=== PATIENT | female | born 1975 | race Caucasian/White ===

== ENCOUNTER → 2017-01-08 | Outpatient (CLI) | payer BC ==
[~2017-01-08] VITALS: Ht 152.4 cm; Wt 59.0 kg
[~2017-01-08] MED LIST: NAPROXEN 250 M250 MG PO
== END ==
LOC: OPSV 11:00
DX: D50.0 Iron deficiency anemia secondary to blood loss (chronic) (principal); Z98.84 Bariatric surgery status
CPT/HCPCS: 96365; J1756; J7030

== ENCOUNTER → 2020-10-26 | Outpatient (CLI) | payer BC ==
[~2020-10-26] MED LIST changes: +ALTAVERA-28 TA1 EACH PO; +BUSPIRONE HCL5 MG PO; +FERROUS SULFAT325 M2 PO; +KENALOG OINT 0.15 GM TOP; +LIPITOR TAB 1010 MG PO; +PAIN RELIEVER325 MG PO; +PANTOPRAZOLE SO40 MG PO; +PLAQUENIL 200200 MG PO; +SINGULAIR10 MG PO; +XYZAL5 MG PO
[2020-10-26 13:16] LABS: HEMOGLOBIN 12.4 gm/dl (12.3-15.3); RED BLOOD COUNT 4.95 M/UL (4.00-5.10); WHITE BLOOD COUNT 4.7 K/UL (4.5-11.0)
[2020-10-26 13:39] LABS: BUN/CREATININE RATIO 12 (0-10)
[2020-10-27 08:14] LABS: COMPLEMENT C3, SERUM 142 mg/dL (82-167); COMPLEMENT C4, SERUM 19 mg/dL (12-38)
== END ==
LOC: LAB 12:45
PROVIDERS: Internal Medicine; Nurse Practitioner Family
DX: R76.8 Other specified abnormal immunological findings in serum (principal); M35.00 Sjogren syndrome, unspecified; D64.9 Anemia, unspecified
CPT/HCPCS: 36415; 80053; 82595; 85025; 86160

== ENCOUNTER → 2021-12-01 | Outpatient (CLI) | payer OTHER ==
[2021-12-01 09:29] LABS: HEMOGLOBIN 12.9 gm/dl (12.3-15.3); RED BLOOD COUNT 4.92 M/UL (4.00-5.10); WHITE BLOOD COUNT 4.2 K/UL (4.5-11.0)
== END ==
LOC: LAB 08:20
PROVIDERS: Nurse Practitioner Family
DX: E78.5 Hyperlipidemia, unspecified (principal); E55.9 Vitamin D deficiency, unspecified
CPT/HCPCS: 36415; 80061; 82570; 82607; 83036; 84156; 84439; 84443; 85025